=== PATIENT | female | born 1985 | race Caucasian/White ===

== ENCOUNTER 2019-04-10 08:53 | Day surgery (SDC) | payer OTHER ==
[~2019-04-10] VITALS: Ht 149.9 cm; Wt 77.0 kg
[~2019-04-10 08:53] MED LIST: AMLO2.5T78 PO; CEFAZOLIN 2 GM/50 ML (PMX) 50 ML IVPB ONE; CETI5SOL PO; FLUT16SP17 NASAL; FLUT1BLS INHALATION; HYDR25TA6 PO; LORA-186 PO; MONT10TA24 PO
[2019-04-10 09:35] VITALS: Ht 149.9 cm; Wt 77.0 kg
[2019-04-10 09:42] VITALS: BP 112/71; PULSE 62; RESP 16
--- NOTE | 2019-04-10 10:53 | PREAC ---
Date/Time of Note Date/Time of Note DATE: 04/10/19 TIME: 10:52 Anesthesia Eval and Record Evaluation Time Pre-Procedure Interview DATE: 04/10/19 TIME: 10:52 Age 34 Sex female NPO: 8 hrs Preoperative diagnosis breast mass Planned procedure excision Past Medical History Past Medical History: Includes Cardio: HTN Pulm: Asthma Psych: Depression, Anxiety, Other (ptsd) Surgery & Anesthesia Issues No known issue Meds Anticoagulation: No Beta Edelmira within 24 hr: No Reason Beta Edelmira not given: Pt. not on B-Edelmira Reported Medications Fluticasone Propionate* (Fluticasone Propionate* Nasal) 50 Mcg/Wiggins - 16 Gm S pray.susp, 1 SPRAY NASAL DAILY, #1 BOTTLE TO EACH NOSTRIL 04/10/19 Hydrochlorothiazide* (Hydrochlorothiazide*) 25 Mg Tab, 25 MG PO DAILY, #30 TAB 04/10/19 Amlodipine Besylate* (Amlodipine Besylate*) 2.5 Mg Tablet, 5 MG PO DAILY, #30 TAB 04/10/19 Loratadine* (Claritin*) 10 Mg Tablet, 10 MG PO DAILY, TAB 04/10/19 Montelukast Sodium* (Montelukast Sodium*) 10 Mg Tablet, 10 MG PO QHS, #30 TAB 04/10/19 Cetirizine Hcl* (Cetirizine Hcl*) 5 Mg/5 Ml Solution, 10 MG PO DAILY, #300 ML 04/10/19 Fluticasone/Vilanterol (Breo Ellipta 200-25 Mcg INH) 1 Each Blst.w.dev, 1 PUFF INHALATION DAILY, #1 INHALER 04/10/19 Current Medications Sodium Chloride 1,000 ml @ 75 mls/hr [id number] IV ; Start 04/10/19 at 16:30 Meds reviewed: Yes Allergies Coded Allergies: No Known Allergy (Unverified , 04/09/19) Allergies Reviewed: Yes Labs/Studies Labs Reviewed: Reviewed by anesthesiologist test: Negative Pre-procedure Exam Last vitals Vital Signs Date Temp Pulse Resp B/P (MAP) Pulse Ox O2 O2 Flow FiO2 Time Delivery Rate 04/10/19 97.8 62 16 112/71 98 Room Air 09:42 (85) Airway: Adequate mouth opening, Adequate thyromental dist Mallampati: Mallampati IV Teeth: Abnormal Lung: Normal Heart: Normal ASA Physical Status ASA physical status: 3 Emergency: None Pre-operative Attestations Prior to commencing anesthesia and surgery, the patient was re-evaluated, there was verification of: *The patient's identity *The results of appropriate recent lab work and preoperative vital signs *The above evaluation not changing prior to induction *Anesthetic plan, risk benefits, alternative and complications discussed with patient/family; questions answered; patient/family understands, accepts and wishes to proceed. CANDY ATKINSON DO Apr 10, 2019 10:53
[2019-04-10] MEDS ORDERED: HYDROmorphONE 1 MG/5 ML IV SYRINGE IV PRN ×3 (11:00)
[2019-04-10] MEDS ORDERED: BUPIVACAINE 0.5% (SDV) 30 ML INJ ONE (11:20)
[2019-04-10] MEDS ORDERED: LIDOCAINE 2% (MDV) 20 ML INJ ONE (11:20)
[2019-04-10] MEDS ORDERED: FENTAnyl 50 MCG/ML VIAL ONE (11:42)
[2019-04-10] MEDS ORDERED: MIDAZOLAM 1 MG/ML 2 ML INJ ONE (11:42)
[2019-04-10 12:11] VITALS: BP 113/76; PULSE 66; RESP 22
--- NOTE | 2019-04-10 12:15 | OPR ---
Date/Time of Note Date/Time of Note DATE: 04/10/19 TIME: 12:13 Operative Report Procedure Date: Apr 10, 2019 Preoperative Diagnosis left breast mass Postoperative Diagnosis same Operation/Procedure Performed 1. excision of left breast mass 2 cm mass 2 cm incision 2. localized adjacent tissue transfer with the use of skin flaps 4 sq cm defect of left breast 3. therapeutic injection of subcutaneous local anesthesia Surgeon see signature line Student Education Specialist none Anesthesia Type: MAC Estimated Blood Loss: 0 - 10 ml's Transfusion none Specimen left breast mass Grafts/Implants none Complications none Pt Condition Post Procedure: stable Indications This is a 34-year-old female with a left breast mass. She required surgical excision of the left breast mass. Risks alternatives benefits and personal were discussed with the patient. Patient expressed understanding consents to the operation. Procedure Description Patient is taken to the OR and prepped and draped in usual sterile fashion. Surgical time was performed. IV antibiotics given. Therapeutic contains local anesthesia was injected at the incision site. Elliptical incision was made over the left breast mass which occurs in the left areole at the upper inner quadrant. It is not near the borders. Dissection with cautery skin onto the mass and the mass was circumferentially excised. Good hemostasis status. Due to tissue defect localization just transfer with these of skin flaps was performed. Multilayer closed with interrupted 3-0 Vicryl running 4-0 Monocryl. Gurvinder HEREDIA Apr 10, 2019 12:15
[2019-04-10 12:18] VITALS: BP 119/76; PULSE 68; RESP 14
--- NOTE | 2019-04-10 12:19 | PAC ---
Date/Time of Note Date/Time of Note DATE: 04/10/19 TIME: 12:18 Post-Anesthesia Notes Post-Anesthesia Note Last documented vital signs Vital Signs Date Temp Pulse Resp B/P (MAP) Pulse Ox O2 O2 Flow FiO2 Time Delivery Rate 04/10/19 98 75 16 120/65 98 Room Air 1218 Activity: WNL Respiratory function: WNL Cardiovascular function: WNL Mental status: Baseline Pain reasonably controlled: Yes Hydration appropriate: Yes Nausea/Vomiting absent: Yes CANDY ATKINSON DO Apr 10, 2019 12:19
[2019-04-10 12:23] VITALS: BP 117/77; PULSE 74; RESP 21
[2019-04-10 12:28] VITALS: BP 118/78; PULSE 70; RESP 25
[2019-04-10] MEDS ORDERED: HYDROCODONE/APAP (5/325) TAB PO ONE (12:30)
[2019-04-10 12:39] VITALS: BP 133/71; PULSE 68; RESP 16
[2019-04-10] MEDS ORDERED: SOD CHLORIDE 0.9% 1,000 ML IV SCH (16:30)
== END 2019-04-10 13:00 | disposition home or self-care (01) ==
LOC: SDS 08:53
PROVIDERS: ATTEND Surgery
DX: D24.2 Benign neoplasm of left breast (principal); I10 Essential (primary) hypertension; J45.909 Unspecified asthma, uncomplicated; F41.9 Anxiety disorder, unspecified
CPT/HCPCS: 14000; 19120; J2250; J3010; Z7610; 88307; J0690